=== PATIENT | female | born 1965 | race Caucasian/White ===

== ENCOUNTER → 2017-09-11 | Outpatient (CLI) | payer OTHER | END | disposition home or self-care (01) | LOC: MAMMO 10:51 | PROVIDERS: ATTEND Nurse Practitioner Family | DX: Z12.31 Encounter for screening mammogram for malignant neoplasm of breast (principal) ==

== ENCOUNTER → 2019-03-11 | Outpatient (CLI) | payer OTHER ==
--- NOTE | 2019-03-12 16:21 | CT ---
Procedure: CT LUNG SCREENING Exam Date: 03/11/2019. Ordering Provider: Delano Eddy Clinical Indication: SCREEN This patient meets eligibility criteria for low-dose CT lung cancer screening. Comparison: None. Technique: Using a multislice scanner, sequential helical axial imaging was obtained in the thorax, 2.5 mm thickness, 2.5 mm separation, from the level of the thoracic inlet through the lung bases without IV contrast. A low dose protocol was utilized for BMI less than 30: BMI: 29. CTDI: 1.76 mGy. 120. kVp. 45 mA. DLP 65.59 mGy-centimeters. 2D sagittal and coronal reconstructed images, 6.0 mm thickness, were obtained. This exam was performed according to our departmental dose optimization program which includes use of automated exposure control, adjustment of the mA and/or kV according to patient size and/or use of iterative reconstruction technique. Nodule measurements under 10 mm are given as mean value of 3 axes diameters. FINDINGS: Lungs and large airways: Multiple markedly enlarged bulla bilaterally predominantly in the upper lobes and more right than left. Bulla and blebs are mostly peripheral paraseptal. Bulla also in the medial recess of the right lower lobe with scattered blebs in the right middle lobe and lingula. Groundglass infiltrate versus scarring abutting the lateral bulla and right and left apical lung tissue measuring 1.5 x 1.0 cm on a single axial image, but elongated in the craniocaudal dimension most likely representing a scar. Solid nodule abutting other smaller nodules in the left apex on series/image 10/30, measuring 5.5 mm with extension to the pleura and also abutting a large bulla. Smaller subpleural groundglass nodules in the bilateral lower lobes. Scarring abutting residual right apical lung parenchyma which is mostly surrounded by blebs and bulla on axial images / through 33 with adjacent pleural thickening. Pleura and space: No effusion bilaterally or pneumothorax. Mediastinum and alex: evaluation limited by low dose technique and lack of IV contrast. Normal size nodes with no dominant soft tissue masses. Heart and great vessels: Trace calcification coronary arteries. Chest wall, lower neck, axillae: Evaluation also limited by same factors as described above. Negative. Upper abdomen: Evaluation limited by low-dose technique. No free fluid or free air or fatty stranding in the included peritoneal space. Spleen and adrenal glands normal density and size. Other included abdominal organs are unremarkable. Partial visualization of gallbladder. Osseous structures: Evaluation limited by low dose MIP technique. Minimal spondylosis in the included thoracic spine. No lytic or blastic lesions. IMPRESSION: 1. Marked emphysematous changes in the lungs more in the upper lobes and more right than left. No pneumothorax. Solid nodule 5.5 mm left apex. Bilateral groundglass densities more likely to represent scarring, measuring 1.8 cm in the right apex and 2 cm in the left apex. [facility] Best Practice recommendations: Please see below for Lung RADS category and FOLLOW-UP.* *Lung RADS category CATEGORY 3 - Probably benign (1-2% malignancy probability), short term follow-up suggested. NODULES: Solid nodule(s) 6mm to less than 8mm at baseline, or new 4mm to under 6mm solid nodule. Part solid nodule total diameter 6mm to less than 8mm with solid component less than 6mm, or new less than 6mm total diameter nodule] [ground glass nodule(s) 20mm or greater. FOLLOW-UP: Please return for a Low Dose Chest CT in 6 months for re-evaluation. Electronically signed by: Klaus Taylor MD 03/12/2019 4:19 PM CDT
== END ==
LOC: CT 14:00
PROVIDERS: ATTEND Family Medicine
DX: Z87.891 Personal history of nicotine dependence (principal); Z12.2 Encounter for screening for malignant neoplasm of respiratory organs; R91.8 Other nonspecific abnormal finding of lung field; J43.9 Emphysema, unspecified

== ENCOUNTER → 2019-09-15 | Outpatient (CLI) | payer OTHER ==
--- NOTE | 2019-09-16 22:26 | CT ---
Procedure: CT LUNG SCREENING Exam Date: 09/15/2019. Ordering Provider: Delano Eddy Clinical Indication: PERSONAL HISTORY OF TOBACCO USE current cigarette smoker. 18 pack years. This patient meets eligibility criteria for low-dose CT lung cancer screening. Comparison: Low-dose CT lung cancer screening examination March 2019. Technique: Using a multislice scanner, sequential helical axial imaging was obtained in the thorax, 2.5 mm thickness, 2.5 mm separation, from the level of the thoracic inlet through the lung bases without IV contrast. A low dose protocol was utilized for BMI less than 30: BMI: 26.6. CTDI: 1.76 mGy. 120. kVp. 45 mA. DLP 64.66 mGy-cm. 2D sagittal and coronal reconstructed images, 6.0 mm thickness, were obtained. This exam was performed according to our departmental dose optimization program which includes use of automated exposure control, adjustment of the mA and/or kV according to patient size and/or use of iterative reconstruction technique. Nodule measurements under 10 mm are given as mean value of 3 axes diameters. FINDINGS: Lungs and large airways: Large bulla multiple along with smaller blebs bilaterally more on the right with right apex of the lung occupied mostly by large bulla. Stable since the prior study. Stable scarring posterior left apex with stable 5.5 mm nodule abutting a smaller nodule in the posterior apex both extending to the pleura and abutting peripheral bulla. (Axial images ). No change in lateral subpleural scarring thickening in the left apex. Minimal pleural-parenchymal scarring in the base of the right middle lobe and inferior lingula. Vague groundglass density abutting the medial right major fissure and the inferior right hilum is unchanged. No new abnormal nodules or focal masses. No acute or focal infiltrates. Improved aeration of the bilateral lower lobes with less scarring. Pleura and space: Multiple foci of thickening abutting the upper lobes but no acute process. Mediastinum and alex: evaluation limited by low dose technique and lack of IV contrast. Small nodes no change since the prior study. Heart and great vessels: Atherosclerotic calcification of the aorta. Stable. Chest wall, lower neck, axillae: Evaluation also limited by same factors as described above. Negative. Upper abdomen: Evaluation limited by low-dose technique. No free air or free fluid. Gallbladder partially visualized. Normal size and density of the included spleen and adrenal glands. Atherosclerotic calcification of the abdominal aorta. Osseous structures: Evaluation limited by low dose MIP technique. Multiple levels of spondylosis thoracic spine. IMPRESSION: 1. Marked emphysematous changes with multiple blebs and bulla bilateral lungs more right than left and more severe in the upper lobes. No change from the prior study. Stable pleural parenchymal scarring bilaterally and no change in nodules in the left upper lobe near the apex. No new abnormal nodules and no mass.. [facility] Best Practice Recommendations: please see below for Lung RADS category and FOLLOW-UP.* *Lung RADS category CATEGORY 2- Nodules with a very low likelihood (less than 1%) of becoming a clinically active cancer due to size or lack of growth. Nodules: Perifissural nodule(s) < 10 mm. (526mm3). Solid or part solid nodule(s) less than 6mm (113.1 mm3), new solid nodule less than 4mm (33.5 mm3). Ground glass nodule(s) less than 30mm (49798.2 mm3) or unchanged or slow growing ground glass nodule 30mm or greater. Cat 3 or 4 nodule unchanged for 3 or more months. FOLLOW-UP: Continue annual screening with a Low Dose Chest CT in 12 months for re-evaluation. Electronically signed by: Klaus Taylor MD 09/16/2019 10:24 PM [facility]
== END ==
LOC: CT 13:25
PROVIDERS: ATTEND Family Medicine
DX: Z87.891 Personal history of nicotine dependence (principal); R91.1 Solitary pulmonary nodule; R91.8 Other nonspecific abnormal finding of lung field; J43.9 Emphysema, unspecified

== ENCOUNTER → 2020-06-20 | Outpatient (CLI) | payer SELFPAY ==
--- NOTE | 2020-06-21 13:52 | US ---
EXAM DESCRIPTION: Abdomen,Complete: Ultrasound. CLINICAL HISTORY: 54 years Female RUQ PAIN COMPARISON: None Available. TECHNIQUE: Transabdominal scanning: grayscale and Doppler modes. FINDINGS: Gallbladder: normal size, shape, echogenicity; no intraluminal stones or sludge. No fluid around the gallbladder. No wall thickening. 2.1 mm. Non-tender with transducer pressure. Common bile duct: caliber 3.2 mm within normal limits. Liver: normal echogenicity; contour liver capsule smooth where seen. No fluid around the liver. Intrahepatic biliary ducts normal caliber. Doppler hepatopedal flow and normal caliber portal vein 7.5 mm. Long axis right lobe 12.7 cm. Pancreas: normal size and echogenicity. Duct not seen. Complete abdominal aorta: Normal caliber from the proximal segment to the distal bifurcation.. IVC: visualized and normal caliber. Right kidney: long axis measures 10.3 cm; volume 89.8 mL.. Cortical echogenicity normal. Normal cortical thickness. No echogenic stones and no hydronephrosis. Left kidney: long axis measures 9.8 cm; volume 110.9 mL. Cortical echogenicity . Normal. 3.2 mm echogenic structure in the mid cortex. Normal cortical thickness. No echogenic stones and no hydronephrosis. Spleen: Normal. No focal lesions.. number long axis. Other: None. IMPRESSION: 1. Focal fat (3.2 mm) versus calcification versus stone mid cortex of the left kidney with no hydronephrosis and both kidneys otherwise negative. Abdominal aorta and IVC normal caliber. 2. Gallbladder common bile duct and spleen are negative. 3. Liver and pancreas unremarkable. Physiologic vascularity. Electronically signed by: Klaus Taylor MD 06/21/2020 1:50 PM CDT
== END ==
LOC: YCFC.O 10:47
PROVIDERS: ATTEND Nurse Practitioner
DX: R10.9 Unspecified abdominal pain (principal); R53.83 Other fatigue; N28.9 Disorder of kidney and ureter, unspecified

== ENCOUNTER → 2020-06-21 | Outpatient (CLI) | payer SELFPAY | LOC: YCFC.O 11:50 | PROVIDERS: ATTEND Nurse Practitioner | DX: R10.9 Unspecified abdominal pain (principal); R53.83 Other fatigue ==

== ENCOUNTER 2020-07-13 05:19 | Observation (INO) | payer SELFPAY ==
[2020-07-13] MEDS ORDERED: SODIUM CHLORIDE 0.9% (FLUSH) 10 ML SYG IV PRN ×2 (05:42→10:59)
--- NOTE | 2020-07-13 05:43 | ED.PDOC ---
History of Present Illness - General Source: patient - History of Present Illness Initial Comments: 54-year-old female with a past medical history of GERD who presents with chief complaint of abdominal pain. Onset last night at home while at rest shortly after eating a small amount of cheese, rapidly worsened through the night and this morning, now rates as 10/10 severity and constant in nature. Patient reports the pain begins in the epigastric region and radiates around either side of the upper abdomen into the back and into the shoulder blade area. Describes as nauseating quality. She tried taking some sips of water earlier this morning which only worsen the pain. She did report that she had one episode of nonbloody nonbilious emesis which seemed to relieve the pain only very briefly. She reports she has been having similar symptoms intermittently for the past month but this is much more severe than usual. PCP is Dr. Griffith. She reports recently she saw him in the clinic for the same issue and had ultrasound imaging of her abdomen done which revealed no acute findings. She reported that she was told she had a stomach ulcer. She reports she was taking Protonix and ranitidine regularly until about 6 months ago when she stopped taking the medication. She reports she has not had any issue until this past month. She does report that she drinks alcohol a couple times a week, usually 3-6 beers at a time. She states that she had not been drinking ye sterday. She additionally smokes about 3 cigarettes/day. Denies any illicit drug use. She reports her last bowel movement was yesterday morning which was normal at that time. She denies any blood in the vomit or stool. Denies any fevers, chills, chest pain, shortness of breath, sore throat, headaches, body aches, urinary symptoms. She does report that she feels slightly bloated/distended in the abdomen. Reports some issues overnight with being able to pass gas. She also reports that she gets sharp pains in her shoulder blades, right worse than the left, when she takes a deep breath. Prior abd surgeries include hysterectomy. <Erwin Virk - Last Filed: 07/13/20 07:02> <Eunice Barr - Last Filed: 07/13/20 10:46> - General Time Seen by Provider: 07/13/20 05:41 - History of Present Illness Allergies/Adverse Reactions: Allergies NO KNOWN ALLERGY Allergy (Verified 06/22/16 16:17) Home Medications: Ambulatory Orders Dicyclomine HCl [Dicyclomine Hydrochloride] 10 mg PO Q6H PRN 07/13/20 hydrOXYzine HCl [Atarax] 25 mg PO Q6H PRN 07/13/20 Review of Systems - Review of Systems Review of Systems: 07/13/20 06:08 as per HPI All other Systems: Reviewed and Negative <Erwin Virk - Last Filed: 07/13/20 07:02> Past Medical History (General) - Patient Medical History Hx Seizures: No Hx Stroke: No Hx Dementia: No Hx Asthma: Yes Hx of COPD: Yes Hx Cardiac Disorders: No Hx Congestive Heart Failure: No Hx Pacemaker: No Hx Hypertension: No Hx Thyroid Disease: No Hx Diabetes: No Hx Gastroesophageal Reflux: No Hx Renal Disease: No Hx Cancer: No Hx of HIV: No Hx Hepatitis C: No Hx MRSA: No Surgical History: other - Vaccination History Hx Tetanus, Diphtheria Vaccination: Yes Hx Influenza Vaccination: No Hx Pneumococcal Vaccination: No - Social History Hx Tobacco Use: Yes - Half pack Hx Chewing Tobacco Use: No Hx Alcohol Use: Yes Hx Substance Use: No Hx Substance Use Treatment: No Hx Depression: No Feels Threatened In Home Enviroment: No Feels Threatened In a Relationship: No Hx Physical Abuse: No Hx Emotional Abuse: No Hx Suspected Abuse: No - Triage Comment ED Triage Comment: The patient was alert and oriented times 4 and was in obvious discomfort. She was holding her upper abdomen and complained of upper epigastr ic pain with nausea and vomiting. She denied shortness of breath and chest pain or discomfort but did have noted radiation of pain to her back. <Erwin Virk - Last Filed: 07/13/20 07:02> Family Medical History - Family History Mother Family History: Unknown Living Status: Unknown Hx Family Diabetes: Yes - MOTHER HAS DIABETES <Erwin Virk - Last Filed: 07/13/20 07:02> Physical Exam - Physical Exam General Appearance: Alert, Anxious - sitting up in bed hunched over due to pain, No apparent distress Eye Exam: bilateral normal Ears, Nose, Throat: hearing grossly normal, normal ENT inspection, normal pharynx Neck: non-tender, full range of motion, supple, normal inspection Respiratory: lungs clear, normal breath sounds, no respiratory distress, no accessory muscle use Cardiovascular/Chest: normal peripheral pulses, regular rate, rhythm, no edema, no gallop, no JVD, no murmur Peripheral Pulses: radial,right: 2+, radial,left: 2+ Gastrointestinal/Abdominal: soft, no organomegaly, abnormal bowel sounds - diminished throughout, distended - minimal, tenderness - marked to epigastric region with some guarding, moderate to RUQ & LUQ regions, minimal elsewhere, no flank ttp Back Exam: normal inspection, no CVA tenderness, no vertebral tenderness Extremity: normal range of motion, non-tender, normal inspection, no pedal edema, no calf tenderness, normal capillary refill Neurologic: no motor/sensory deficits, alert, normal mood/affect, oriented x 3 Skin Exam: normal color, warm/dry <Erwin Virk - Last Filed: 07/13/20 07:02> Progress - Progress Progress: 07/13/20 06:11 Acute abdominal pain -consider: gastric ulcer, peptic ulcer, acute pancreatitis, acute cholecystitis, acute gastritis, peritonitis, SBO, UTI, pyelonephritis, PNA, ACS, CHF, GI bleed, SBP, ascites, cirrhosis, liver dz, neoplasm, sepsis, ischemic colitis, other -pt with stable/normal vitals upon arrival but appears in pain/discomfort with 10/10 severity pain. Marked epigastric ttp and guarding on exam. -stat abdominal/cardiac work-up, place PIV, 1 L NS bolus, Fentanyl 50 mcg IV, Zofran 4 mg IV, Protonix 40 mg IV -plan for CT A/P imaging -possible surgical consultation 07/13/20 06:56 -Pt remains stable, pain slightly improved. -Labs reveal mild T bili elevation 1.7 (0.7 direct) along with leukocytosis. LFT's slightly elevated as well. Lactate 1.6. -CXR reveals bullous changes and scarring but no acute processes -CT A/P reveals distended gallbladder with a few small gallstones and intrahepatic biliary ductal dilatation but no evidence of acute cholecystitis. -Will plan to obtain US imaging of abdomen for further eval of the gallbladder -Dr. Barr to f/u on results and provide further dispo on patient including likely surgical consultation. Erwin Virk MD Billing #[id number] - EKG/XRAY/CT EKG: Sinus - Normal sinus rhythm, heart rate 60, no ST elevations or Q waves noted, axis normal, intervals normal, no prior EKG for comparison. XRAY: chest - reveals bullous changes and scarring, worse on the right side/RUL, no other acute processes per my read <Erwin Virk - Last Filed: 07/13/20 07:02> - Results/Orders Results/Orders: 54 yo F comes in with one day of RUQ, no fever. + n/v, no diarrhea. Elevated liver enzymes, CT shows gallstones, WBC 12,000. Has gotten total of 100 mcg of fentanyl, 4 mg zofran and 30 mg toradol. US shows thickened gbw, stones at neck. CBD borderline at 5.6. Started on zosyn. WIll call surgery for choleycysitis. only prior abdominal surgery ovarian cyst, btl. The data reviewed when caring for this patient included: nurse notes, prior records, etc. The history and assessments from nurses notes were reviewed and considered, and the patient's home medication list was also reviewed and considered. My assessment and the results of testing completed here in the ED were discussed with the patient/family. All questions were answered, and they express understanding of my assessment and the plan. patient was admitted in stable condition. Eunice Barr DO #[id number] - Additional EKG/XRAY/Consults Time Called: 08:36 Consult/PCP: Surgery <Eunice Barr - Last Filed: 07/13/20 10:46> Departure <Erwin Virk - Last Filed: 07/13/20 07:02> <Eunice Barr - Last Filed: 07/13/20 10:46> - Departure Clinical Impression: Epigastric pain, Cholecystitis Acute gastritis Qualifiers: Gastritis type: unspecified gastritis Gastritis bleeding: without bleeding Qualified Code(s): K29.00 - Acute gastritis without bleeding Disposition: Admit Patient Home Medications: Ambulatory Orders Dicyclomine HCl [Dicyclomine Hydrochloride] 10 mg PO Q6H PRN 07/13/20 hydrOXYzine HCl [Atarax] 25 mg PO Q6H PRN 07/13/20 Decision To Admit - Decistion To Admit Decision to Admit Date: 07/13/20 Decision to Admit Time: 08:36 <Eunice Barr - Last Filed: 07/13/20 10:46>
[2020-07-13] MEDS ORDERED: ONDANSETRON INJ 4 MG/2 ML VIAL IV ONE ×2 (05:59→15:12)
[2020-07-13] MEDS ORDERED: PANTOPRAZOLE SODIUM IV 40 MG VIAL IV ONE (05:59)
[2020-07-13] MEDS ORDERED: SODIUM CHLORIDE 0.9% 1000ML 1,000 ML IVS ONE (05:59)
[2020-07-13] MEDS ORDERED: fentaNYL CITRATE INJ 50 MCG/ML 2 ML AMP IV ONE ×2 (05:59→07:06)
--- NOTE | 2020-07-13 06:48 | RAD ---
EXAM: XR Chest, 1 View CLINICAL HISTORY: epigastric pain, radiates to back/shoulder blades TECHNIQUE: Frontal view of the chest. COMPARISON: 09/15/2019. FINDINGS: Lungs: There is bullous emphysema most notably involving the right upper lobe. There is Pleural space: No pneumothorax or pleural effusion. Heart: Normal cardiac size and configuration. Mediastinum: No abnormality noted. Bones/joints: No osseous destruction or sclerosis noted. IMPRESSION: Chronic changes as above. No acute disease. Electronically signed by: Aye Kuo MD 07/13/2020 6:47 AM [facility]
--- NOTE | 2020-07-13 06:53 | CT ---
CT ABDOMEN AND PELVIS WITH CONTRAST. CLINICAL HISTORY: epigastric pain, nausea COMPARISON: None. TECHNIQUE: Axial CT imaging of the abdomen and pelvis performed with intravenous contrast. Reformatted coronal and sagittal images reviewed. A dose reduction technique was utilized with automated exposure control according to patient size. FINDINGS: There is bullous changes within the right middle lobe and lingula. Heart is normal in size. The liver is normal in size. Attenuation is within normal limits. The gallbladder contains a few dependent calcified stones. Minimal intrahepatic biliary ductal dilatation. The gallbladder is mildly distended. Unremarkable spleen and pancreas. Normal adrenal glands and kidneys. Moderate aorta cirrhosis. No aneurysm. Normal caliber aorta and inferior vena cava. No retroperitoneal lymphadenopathy. Normal stomach and small bowel loops. Appendix is normal along the right pelvic sidewall. Normal colon. No ascites or free air. No mesenteric lymphadenopathy. The bladder appears normal. Unremarkable uterus and ovaries. No pelvic free fluid. There is mild lumbar degenerative changes. Bony pelvis appears intact. Normal hips. IMPRESSION: 1. Emphysema. 2. Cholelithiasis with mild intrahepatic biliary duct dilatation. No evidence of cholecystitis. Electronically signed by: Nieves Rock DO 07/13/2020 6:52 AM [employer]ARD[employer]ERIAL TECHNICIAN
[2020-07-13] MEDS ORDERED: PROPOFOL 200 MG/20 ML VIAL IV ONE (07:00)
[2020-07-13] MEDS ORDERED: LIDOCAINE 1% 10 ML VIAL INJ ONE (07:00)
[2020-07-13] MEDS ORDERED: DEXAMETHASONE INJ 10 MG/ML VIAL ONE (07:00)
[2020-07-13] MEDS ORDERED: MAGNESIUM SULFATE INJ 1 GM/2 ML VIAL ONE (07:00)
[2020-07-13] MEDS ORDERED: KETOROLAC TROMETHAMINE INJ 30 MG/ML VIAL IV ONE ×2 (07:27→12:26)
[2020-07-13] MEDS ORDERED: cefTRIAXone SODIUM 1 GM in SODIUM CHL 0.9% 50ML MIN-BAG+ 50 ML IVPB ONE (08:37)
[2020-07-13] MEDS ORDERED: metroNIDAZOLE IV PREMIX 500MG 500 MG in PREMIX BAG 1 BAG IVPB ONE (08:37)
[2020-07-13] MEDS ORDERED: PIPERACILLIN/TAZOBACTAM 4.5 GM in SODIUM CHLORIDE 0.9% 100ML 100 ML IVPB ONE (08:44)
--- NOTE | 2020-07-13 09:32 | US ---
EXAM DESCRIPTION: Abdomen,Complete: Ultrasound. CLINICAL HISTORY: 54 years Female acute epigastric pain, gallstones noted on CT COMPARISON: None Available. TECHNIQUE: Transabdominal scanning: grayscale and Doppler modes.. Technically difficult study due to patient body habitus. FINDINGS: Gallbladder: Normal size. 5.1 mm stone with partial acoustic shadowing. In the neck of the gallbladder. fluid within the gallbladder wall. Wall thickening 5.1 mm. Tender with transducer pressure. Common bile duct: caliber 5.8 mm within normal limits. Liver: normal echogenicity; contour liver capsule smooth where seen. No fluid around the liver. Intrahepatic biliary ducts normal caliber. Doppler hepatopedal flow and normal caliber portal vein 8.1 mm.. Long axis right lobe 14.6 cm. Pancreas: normal size and echogenicity. Duct not seen. Complete abdominal aorta: Normal caliber from the proximal segment to the distal bifurcation.. IVC: visualized and normal caliber. Right kidney: long axis measures 9.6 cm; volume 86.2 mL.. Cortical echogenicity tab. Normal cortical thickness. No echogenic stones; no hydronephrosis. Left kidney: long axis measures 11.3 cm; volume 142.9 mL.. Cortical echogenicity tab. Normal cortical thickness. No echogenic stones; no hydronephrosis. Spleen: Heterogeneous echogenicity. No focal lesions.. 10.6 cm long axis. Other: None. IMPRESSION: 1. Cholelithiasis with stone in the gallbladder neck. Cholecystitis with fluid in the gallbladder wall which is thickened and tenderness with transducer pressure. No definite abscess. Common bile duct upper normal limits in caliber. 2. Normal echogenicity and size of liver. Physiologic vascularity and ducts. Smooth capsule with no ascites. Limited visualization of the pancreas. Heterogeneous echoes in the spleen but normal size and vascularity. 3. Bilateral kidneys normal cortical thickness and size and otherwise unremarkable.. Electronically signed by: Klaus Taylor MD 07/13/2020 9:31 AM PUBLIC SERVICES ASSISTANT
[2020-07-13] MEDS ORDERED: ALBUTEROL SULFATE 2.5 MG/3 ML VIAL NEB PRN (10:59)
[2020-07-13] MEDS ORDERED: IV SET AND CAP CHANGE INJ INJ SCH (11:00)
[2020-07-13] MEDS ORDERED: KCL 20MEQ/D5 1/2NS 1,000 ML IVS PRN (11:08)
[2020-07-13] MEDS: IPRATROPIUM/ALBUTEROL 3 ML VIAL INH SCH ×3 (12:00→20:45)
[2020-07-13] MEDS ORDERED: fentaNYL CITRATE INJ 50 MCG/ML 2 ML AMP ONE (12:55)
[2020-07-13] MEDS ORDERED: KETAMINE HCL 100 MG/ML VIAL ONE (12:55)
[2020-07-13] MEDS ORDERED: MIDAZOLAM INJ 2 MG/2 ML VIAL ONE (12:55)
[2020-07-13] MEDS ORDERED: ROCURONIUM BROMIDE 10 MG/ML VIAL ONE (12:56)
[2020-07-13] MEDS ORDERED: SUGAMMADEX SODIUM 200 MG/2 ML VIAL IV ONE (12:56)
[2020-07-13] MEDS ORDERED: DEXMEDETOMIDINE HCL 200 MCG/2 ML INJ IV ONE (12:56)
[2020-07-13] MEDS ORDERED: FAMOTIDINE INJ 10 MG/ML VIAL IV ONE (12:56)
[2020-07-13] MEDS ORDERED: BUPIVACAINE 0.5% W/EPI 30 ML VIAL INJ ONE ×2 (12:57→13:00)
[2020-07-13] MEDS ORDERED: ELECTROLYTE-A 1,000 ML IVS ONE (12:59)
--- NOTE | 2020-07-13 14:14 | OP ---
DATE OF PROCEDURE: 07/13/20 PREOPERATIVE DIAGNOSIS: 1. Cholecystitis. POSTOPERATIVE DIAGNOSIS: 1. Cholecystitis. PROCEDURE: 1. Laparoscopic cholecystectomy with intraoperative cholangiogram. SURGEON: Umberto Moeller MD. ANESTHESIA: General and local. FINDINGS: The gallbladder showed acute inflammation and edema. Cholangiogram revealed normal anatomy with free flow throughout the entire system with no filling defect. COMPLICATIONS: None. ESTIMATED BLOOD LOSS: None. SPECIMEN: Gallbladder. PLAN: May discharge home if she does well postoperatively. INDICATION: As stated. PROCEDURE: General anesthesia was induced. The patient was prepped and draped in sterile fashion. Marcaine 0.5% with epinephrine was used at all incision sites. While maintaining upward traction, a christina was made near the base of the umbilicus. Veress needle was introduced. There was free flow of fluid into the peritoneal cavity which was insufflated to an appropriate level with CO2 gas. The 5 mm trocar was placed followed by the camera. There was no evidence of bleeding or bowel injury. The patient was positioned and subxiphoid and lateral ports were placed under direct visualization without difficulty. The gallbladder fundus was identified, grasped and retracted superiorly and laterally. There were some adhesions and edema. These were taken down. The infundibulum was grasped. The infundibular structures were dissected free. The duct and artery were clearly visualized. The artery was triply ligated. A clip was placed on the proximal duct and ductotomy performed. The cholangiocatheter was introduced. The cholangiogram revealed the above normal findings. The catheter was removed. Three clips were placed on the distal duct. The duct was ligated. The artery had already been ligated. We then clipped some tissue in the back, nonvascular. The gallbladder was then dissected off the fossa in toto and removed in the EndoCatch bag. A small amount of bile spillage from the bag was irrigated until all aspirate was clear. The clips were examined. There was no bleeding or bile leakage. The fossa remained hemostatic under low pressure. The subxiphoid fascia was then closed with 0 Vicryl using the suture passer. It was airtight and non-bleeding. The remaining trocars were removed. There was no bleeding from the trocar sites. The wounds were irrigated and closed with Monocryl. Dressings were applied. The patient tolerated the procedure, was awakened and taken to Recovery in stable condition to be admitted and possible discharge. #[id number] cc: JOSI Rees
[2020-07-13] MEDS ORDERED: ONDANSETRON INJ 4 MG/2 ML VIAL ONE (15:15)
--- NOTE | 2020-07-13 15:53 | SSS ---
SUPERVISING PHYSICIAN: Yunior Griffith MD DATE OF ADMISSION: 07/13/20 DATE OF DISCHARGE: 07/14/20 DISCHARGE DIAGNOSIS: 1. Acute cholecystitis. 2. Elevated transaminase, most likely secondary to #1. 3. Chronic obstructive pulmonary disease without exacerbation. 4. Generalized anxiety disorder. 5. Chronic tobacco abuse. HISTORY OF PRESENT ILLNESS: This is a 54-year-old female patient who presented to the Emergency Room with a chief complaint of abdominal pain that had started the night before after eating a small amount of cheese. It had worsened throughout the night. It was almost constant in nature. It radiated mostly to the right and up into the shoulder area on her right side. She had some nausea. In the Emergency Room, her vital signs showed temperature 97.6, heart rate 76, blood pressure 138/99, respiratory rate 18, O2 saturation 99% on room air. Her lab studies showed a WBC of 12,300 with hemoglobin 14.5, hematocrit 42.6. Electrolytes were basically within normal limits. Total bilirubin 1.7, direct bilirubin was 0.7, indirect 1. AST 120, ALT 83, troponin less than 0.02. Urinalysis showed dark in color with a trace of intact blood and a small amount of urine bilirubin. She was given some fluids as well as some Protonix, Zofran, metronidazole in the ER. She also received some Toradol and fentanyl. Dr. Moeller was consulted. Abdomen and pelvis CT also showed 1) Emphysema. 2) Cholelithiasis with mild intrahepatic biliary duct dilatation. Her abdominal ultrasound showed 1) Cholelithiasis with stone in the gallbladder neck. Cholecystitis with fluid in the gallbladder wall which is thickened and tenderness with transducer pressure. No definitive abscess. Common bile duct appears upper normal limits in caliber. 2) Normal echogenicity and size of liver. Physiologic vascularity in ducts. Smooth capsule with no ascites. Limited visualization of the pancreas. 3) Bilateral kidneys normal cortical thickness and size. Otherwise unremarkable. The patient was admitted to the Floor and Dr. Moeller discussed going to surgery. She was NPO. IV fluids were given. PAST MEDICAL HISTORY: 1. General anxiety disorder. PAST SURGICAL HISTORY: None. OUTPATIENT MEDICATIONS: 1. Dicyclomine. 2. Hydroxyzine. ALLERGIES: NO KNOWN DRUG ALLERGIES. SOCIAL HISTORY: She smokes and has since age 14. She drinks alcohol on a social basis. She denies any illicit drugs. REVIEW OF SYSTEMS: Negative except as per history of present illness PHYSICAL EXAMINATION: VITAL SIGNS: Temperature 98.3, heart rate 69, blood pressure 105/61, respiratory rate 16, O2 saturation 96%. GENERAL: This is a 54-year-old female patient who is lying in her hospital bed. She is in moderate discomfort. HEENT: Normocephalic, atraumatic. Pupils are equal and reactive. Oropharynx is clear. NECK: Supple without mass. RESPIRATORY: Essentially clear to auscultation bilaterally. CHEST: There is equal rise and fall of the chest with inspiration and expiration. CARDIOVASCULAR: Regular rate and rhythm. GASTROINTESTINAL: Abdomen is soft, nondistended. Bowel sounds are diminished throughout. She has tenderness throughout the right side of her abdomen that extends to the epigastric area. NEUROLOGIC: Awake, alert and oriented times three. Cranial nerves II-XII are grossly intact as tested. SKIN: Warm, pink and dry. LABORATORY: Labs and films are as per history of present illness. HOSPITAL COURSE: The patient was taken to the OR and had a laparoscopic cholecystectomy. There were no intraoperative problems. She rested well over night and had no post operative problems. She was walking in the hallways without issues. She has met all the discharge criteria and will be discharged home in stable condition DISCHARGE PLAN: The patient will be discharged home in stable condition. She is to increase her activity as tolerated and has been encouraged to walk frequently. She is also encouraged to stop smoking. She is to advance her diet as recommended by Dr. Moeller. She is to avoid gluten. She is to followup with Dr. Moeller in 2 weeks and her primary care physician as well. In addition to her routine medications, she can also take ibuprofen and I have given her prescription for acetamin[facility] with code[facility] found. She can have 1 to 2 every 6 hours. I have given her #40. She is to return to the hospital or call Dr. Moeller's office for any problems or complications. DISCHARGE MEDICATIONS: 1. Dicyclomine. 2. Hydroxyzine. 3. Acetaminophen with codeine. #[id number] [facility]
[2020-07-13] MEDS: ACETAMINOPHEN W/ COD #4 TAB 1EA TAB PO PRN ×2 (18:55→23:04)
[2020-07-13] MEDS: SODIUM CHLORIDE 0.9% (FLUSH) 10 ML SYG IV SCH (21:18)
[2020-07-13] MEDS: IBUPROFEN 400 MG TAB PO SCH (21:18)
[2020-07-14] MEDS: ACETAMINOPHEN W/ COD #4 TAB 1EA TAB PO PRN (03:25)
[2020-07-14] MEDS: SODIUM CHLORIDE 0.9% (FLUSH) 10 ML SYG IV SCH (08:04)
[2020-07-14] MEDS: IBUPROFEN 400 MG TAB PO SCH (08:04)
[2020-07-14] MEDS: IPRATROPIUM/ALBUTEROL 3 ML VIAL INH SCH (08:54)
[2020-07-14 09:00] VITALS: BP 131/80; TEMP 98; O2SAT 95
--- NOTE | 2020-07-19 07:27 | RAD ---
Intraoperative views from a cholangiogram. Indication: IOC Impression: Fluoroscopic image/s were acquired by the referring physician intraoperatively. Please refer to surgical report for specific details. Fluoroscopy time not submitted. Images submitted one Electronically signed by: Jason Olson MD 07/19/2020 7:[address] [facility]
== END 2020-07-14 09:00 | disposition home or self-care (01) ==
LOC: ER 05:19 → MS 10:43
PROVIDERS: ADMIT Family Medicine; ATTEND Nurse Practitioner Acute Care
DX: K80.12 Calculus of gallbladder with acute and chronic cholecystitis without obstruction (principal); D13.5 Benign neoplasm of extrahepatic bile ducts; R74.01 Elevation of levels of liver transaminase levels; J44.9 Chronic obstructive pulmonary disease, unspecified; F41.1 Generalized anxiety disorder; F17.210 Nicotine dependence, cigarettes, uncomplicated; K21.9 Gastro-esophageal reflux disease without esophagitis; E66.9 Obesity, unspecified; Z68.28 Body mass index [BMI] 28.0-28.9, adult; Z79.51 Long term (current) use of inhaled steroids; Z79.899 Other long term (current) drug therapy; Z20.828 Contact with and (suspected) exposure to other viral communicable diseases
CPT/HCPCS: 47563; 00790; 96365; 96375; 96376; J3010 ×3; J1885; J2405 ×2; J3490; J7030; J3475; J1100; A4216 ×2; J7620 ×3; J2250; J2543; J7050; 80048; 80053; 36415 ×4; 82150; 81001; 80076; 85025 ×2; 87040 ×2; 83690; 83735; 84484; 83605; 71045; 76000; 74177; 76700; 94640 ×3; 94760 ×3; 99406; 99285; 93005; G0378; 87502; 87635

== ENCOUNTER → 2020-07-25 | Outpatient (CLI) | payer SELFPAY ==
--- NOTE | 2020-07-25 15:02 | RAD ---
EXAM DESCRIPTION: Lumbar Spine x-ray 3 Views CLINICAL HISTORY: LOW BACK PAIN COMPARISON: None Available. TECHNIQUE: AP/lateral/coned-down lateral FINDINGS: There is anatomic alignment of the vertebral bodies of the lumbar spine. Gallbladder clips in the right upper quadrant. Frontal view shows intact pedicles and transverse processes. Sacrum appears intact with normal SI joints. Lateral view shows no vertebral compressions. Mild degenerative decrease of disc height at multiple levels with anterior spurring. Bones appear osteopenic. No destructive lesion. IMPRESSION: Mild degenerative changes as described. Electronically signed by: Ion Palm MD 07/25/2020 3:00 PM [facility]
== END ==
LOC: RAD 10:48
PROVIDERS: ATTEND Nurse Practitioner
DX: M47.896 Other spondylosis, lumbar region (principal)

== ENCOUNTER → 2020-09-19 | Outpatient (CLI) | payer OTHER, SELFPAY ==
--- NOTE | 2020-09-20 10:10 | CT ---
Procedure: CT LUNG SCREENING Exam Date: September 19, 2020 Ordering Provider: Delano Eddy Clinical Indication: SCREENING FOR MALIGNANT NEOPLASM OF RESPIRATORY TRACT . Smoking cessation x7 months. 37 pack-years. This patient meets eligibility criteria for low-dose CT lung cancer screening. Comparison: CT lung cancer screening examinations September 2019 and March 2019. Technique: Using a multislice scanner, sequential helical axial imaging was obtained in the thorax, 2.5 mm thickness, 2.5 mm separation, from the level of the thoracic inlet through the lung bases without IV contrast. A low dose protocol was utilized for BMI less than 30: BMI: 28. CTDI: 1.76 mGy. 120. kVp. 45 mA. DLP 64 mGy-cm. 2D sagittal and coronal reconstructed images, 6.0 mm thickness, were obtained. This exam was performed according to our departmental dose optimization program which includes use of automated exposure control, adjustment of the mA and/or kV according to patient size and/or use of iterative reconstruction technique. Nodule measurements under 10 mm are given as mean value of 3 axes diameters. FINDINGS: Lungs and large airways: Again seen are multiple bulla in the right upper lobe as well as smaller blebs. The bulla are paraseptal and subpleural in the mid lung soler and superior right lower lobe. Few blebs and bulla in the left upper lobe and superior segment left lower lobe. 5.5 mm solid nodule in the left apex on axial series 2, images 23-26, abutting a smaller nodule and subpleural bulla which is stable. Scarring in the superior and lateral left apex with no interval change. Subpleural 5 mm groundglass density posterior left apex. No abnormal nodules and no mass. No focal or interval development of infiltrate. Pleura and space: Apical pleural thickening and bilateral scattered confluent and focal sites of thickening. No interval change. No acute process. Mediastinum and alex: evaluation limited by low dose technique and lack of IV contrast. Normal-sized lymph nodes but no dominant soft tissue mass. Stable since the prior study. Heart and great vessels: Coronary artery calcifications. Minimal calcification aortic arch and descending thoracic aorta. No change from the prior study. Chest wall, lower neck, axillae: Evaluation also limited by same factors as described above. Negative. Upper abdomen: Evaluation limited by low-dose technique. No free fluid or free air. Normal density and size of the spleen and adrenal glands. Surgical clips gallbladder fossa. No fluid. Osseous structures: Evaluation limited by low dose MIP technique. Minimal spondylosis in the thoracic spine. Minimal shoulder clavicle sternal arthrosis. IMPRESSION: Stable 5.5 mm nodule left lung apex. Extensive emphysematous changes bilateral lungs right more than left and upper lung soler more than lower lung soler. No new nodules or mass. No focal infiltrate or interval development of infiltrate. [facility] Best Practice Recommendations: please see below for Lung RADS category and FOLLOW-UP.* *Lung RADS category CATEGORY 2- Nodules with a very low likelihood (less than 1%) of becoming a clinically active cancer due to size or lack of growth. Nodules: Perifissural nodule(s) < 10 mm. (526mm3). Solid or part solid nodule(s) less than 6mm (113.1 mm3), new solid nodule less than 4mm (33.5 mm3). Ground glass nodule(s) less than 30mm (56078.2 mm3) or unchanged or slow growing ground glass nodule 30mm or greater. Cat 3 or 4 nodule unchanged for 3 or more months. FOLLOW-UP: Continue annual screening with a Low Dose Chest CT in 12 months for re-evaluation. 2. Patient's most recent bilateral breast screening digital tomosynthesis examination at this facility September 2017. Please consider follow-up mammographic screening study, if patient has not had screening mammogram in the past 12 months. Electronically signed by: Klaus Taylor MD 09/20/2020 10:08 AM [facility]
== END ==
LOC: CT 09:53
PROVIDERS: ATTEND Family Medicine
DX: R91.1 Solitary pulmonary nodule (principal); J43.9 Emphysema, unspecified; Z12.2 Encounter for screening for malignant neoplasm of respiratory organs; Z87.891 Personal history of nicotine dependence